=== PATIENT | female | born 1950 | race African-American/Black ===

== ENCOUNTER → 2017-05-19 | Outpatient (CLI) | payer MEDICARE | LOC: MC.RAD 13:58 | DX: Z12.31 Encounter for screening mammogram for malignant neoplasm of breast (principal) ==

== ENCOUNTER → 2018-08-10 | Outpatient (CLI) | payer MEDICARE | LOC: MC.RAD 10:51 | DX: Z12.31 Encounter for screening mammogram for malignant neoplasm of breast (principal) ==

== ENCOUNTER → 2019-10-26 | Outpatient (CLI) | payer MEDICARE | LOC: MC.RAD 11:30 | DX: Z12.31 Encounter for screening mammogram for malignant neoplasm of breast (principal) ==

== ENCOUNTER → 2020-11-02 | Outpatient (CLI) | payer MEDICARE | LOC: MC.RAD 14:24 | DX: Z12.31 Encounter for screening mammogram for malignant neoplasm of breast (principal) ==